=== PATIENT | female | born 1965 | race African-American/Black ===

== ENCOUNTER 2018-05-18 06:29 | Day surgery (SDC) | payer BC ==
--- NOTE | 2018-05-18 07:10 | Anesthesia Consultation ---
Anesthesia Consult and Med Hx Date of service: 05/18/18 - Airway Anesthetic Teeth Evaluation: Good ROM Head & Neck: Adequate Mental/Hyoid Distance: Adequate Mallampati Class: Class I Intubation Access Assessment: Good - Pulmonary Exam CTA: Yes - Cardiac Exam Cardiac Exam: RRR - Pre-Operative Health Status ASA Pre-Surgery Classification: ASA1 Proposed Anesthetic Plan: MAC
--- NOTE | 2018-05-18 07:10 | Anesthesia Day of Surgery ---
Anesthesia Day of Surgery - Day of Surgery Patient Examined: Yes Patient H&P Reviewed: Yes Patient is NPO: Yes Jaspal's Test: N/A
[2018-05-18] MEDS ORDERED: NACL 0.9% 1000 ML 1,000 ML IV SCH (08:00)
[2018-05-18] MEDS ORDERED: WATER FOR IRRIG STERILE IR ONE (08:05)
[2018-05-18] MEDS ORDERED: DIPRIVAN 10 MG/ML IV ONE ×2 (08:06)
[2018-05-18] MEDS ORDERED: VERSED ONE (08:07)
[2018-05-18 09:15] VITALS: BP 101/68
--- NOTE | 2018-05-18 09:28 | Procedure Note ---
Date of procedure: 05/18/18 Pre-op diagnosis: Colon Polyp Screening Post-op diagnosis: other (Normal Colon Mucosa (No Colon Polyp or diverticularDisease noted)/ Minor, Internal Hemorrhoid) Procedure: Colonoscopy Anesthesia: MAC Surgeon: VIOLETTE SHELTON Estimated blood loss: none Pathology: none Condition: stable Disposition: same day (Resume home medication and follow up in 1 to 2 weeks ([phone]).)
--- NOTE | 2018-05-18 09:33 | Operative Report ---
PROCEDURE: Colonoscopy. INDICATIONS FOR PROCEDURE: This is a 52-year-old female originally from [facility] who has been here for screening colonoscopy. 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 The patient is status post tubal ligation and is not on any medication. ALLERGIES: The patient has no known allergies. SOCIAL HISTORY: Denies any history of smoking or alcohol use. Colonoscopy was done as part of colon polyp screening. DESCRIPTION OF PROCEDURE: Procedure was done after getting informed consent with MAC anesthesia. Initial rectal examination was unremarkable and the instrument was passed through the rectum onto the cecum, which was identified with ileocecal valve and appendiceal orifice. Visualization was fair to good. Cecum, ascending colon, transverse colon, descending colon and sigmoid showed normal mucosa. There was no evidence of any polyps, colitis or diverticular disease. The rectum showed some minor internal hemorrhoid on the retroverted view. ASSESSMENT: Colon polyp screening, normal colon mucosa. No colon polyps or diverticular disease or any evidence of colitis noted. Minor internal hemorrhoid. There were no biopsies and no complications associated with the procedure. PLAN: The patient will be asked to resume previous medication and follow up in the office in 1-2 weeks' time. RNMonica was in the room throughout the entirety of the procedure. JOB# [id number] NAKUL/ALEXANDRA
== END 2018-05-18 09:20 | disposition home or self-care (01) ==
LOC: GIO 06:29 → EDBD 06:29 → GIO 09:20
DX: Z12.11 Encounter for screening for malignant neoplasm of colon (principal); K64.8 Other hemorrhoids
CPT/HCPCS: 45378; 81025; J2250; J2704; J7030